=== PATIENT | female | born 1975 | race Caucasian/White ===

== ENCOUNTER 2017-07-27 14:38 | Outpatient (CLI) | payer OTHER ==
[~2017-07-27 14:38] MED LIST: TRAMADOL HCL-AP1 TAB PO
== END 2017-07-27 14:42 | disposition home or self-care (01) ==
LOC: MAMO-SONO 14:38
DX: Z12.31 Encounter for screening mammogram for malignant neoplasm of breast (principal); Z87.898 Personal history of other specified conditions; N60.11 Diffuse cystic mastopathy of right breast; N60.12 Diffuse cystic mastopathy of left breast; N92.6 Irregular menstruation, unspecified; N80.6 Endometriosis in cutaneous scar; N83.00 Follicular cyst of ovary, unspecified side; N85.7 Hematometra

== ENCOUNTER 2018-03-29 11:53 | Outpatient (CLI) | payer OTHER ==
[2018-03-30] MEDS ORDERED: CLONAZEPAM2 MG PO (10:51)
== END 2018-03-29 12:07 | disposition home or self-care (01) ==
LOC: RAD 11:53
DX: C50.912 Malignant neoplasm of unspecified site of left female breast (principal); Z01.810 Encounter for preprocedural cardiovascular examination

== ENCOUNTER → 2018-04-02 | Day surgery (SDC) | payer OTHER ==
[~2018-04-02] MED LIST changes: +CLONAZEPAM2 MG PO
== END | disposition home or self-care (01) ==
LOC: CIR.AMB 06:50
DX: D05.12 Intraductal carcinoma in situ of left breast (principal); N62 Hypertrophy of breast

== ENCOUNTER 2018-04-27 09:45 | Outpatient (CLI) | payer OTHER | END 2018-04-27 10:27 | disposition home or self-care (01) | LOC: NUCLEAR 09:45 | DX: I87.2 Venous insufficiency (chronic) (peripheral) (principal) ==

== ENCOUNTER 2018-05-10 20:34 | Emergency (ER) | payer OTHER ==
[~2018-05-10] VITALS: Ht 157.5 cm; Wt 62.1 kg
== END 2018-05-11 00:52 ==
LOC: ER 20:34
DX: R07.89 Other chest pain (principal); J04.0 Acute laryngitis

== ENCOUNTER 2018-05-11 06:46 | Emergency (ER) | payer OTHER ==
[~2018-05-11] VITALS: Ht 157.5 cm; Wt 62.1 kg
== END 2018-05-11 10:35 | disposition home or self-care (01) ==
LOC: ER 06:46
DX: J06.9 Acute upper respiratory infection, unspecified (principal); J11.1 Influenza due to unidentified influenza virus with other respiratory manifestations

== ENCOUNTER 2018-12-30 23:40 | Emergency (ER) | payer OTHER ==
[~2018-12-30] VITALS: Ht 157.5 cm; Wt 62.6 kg
[2018-12-30] MEDS ORDERED: DOLOGEN CAPLET1 EACH (23:57)
[2018-12-30] MEDS ORDERED: NEXIUM2.5 MG (23:59)
[2018-12-31] MEDS ORDERED: DOLOGEN CAPLET1 EACH PO ×2 (00:54→00:55)
== END 2018-12-31 01:18 | disposition home or self-care (01) ==
LOC: ER 23:40
DX: M94.0 Chondrocostal junction syndrome [Tietze] (principal)

== ENCOUNTER 2018-12-31 14:30 | Emergency (ER) | payer OTHER ==
[~2018-12-31] VITALS: Ht 157.5 cm; Wt 61.2 kg
[~2018-12-31 14:30] MED LIST changes: +DOLOGEN CAPLET1 EACH; +DOLOGEN CAPLET1 EACH PO; +NEXIUM2.5 MG
== END 2018-12-31 18:30 | disposition home or self-care (01) ==
LOC: ER 14:30 → CPU-OBS 14:37 → ER 18:30
DX: R07.89 Other chest pain (principal); F41.8 Other specified anxiety disorders

== ENCOUNTER 2020-01-10 16:20 | Emergency (ER) | payer OTHER ==
[~2020-01-10] VITALS: Ht 157.5 cm; Wt 56.7 kg
[2020-01-10] MEDS ORDERED: TOPROL XL25 M1 (16:32)
[2020-01-10] MEDS ORDERED: RELAFEN DS1000 MG (16:32)
== END 2020-01-10 19:58 | disposition home or self-care (01) ==
LOC: ER 16:20 → CPU-OBS 16:21 → ER 19:58
DX: M62.830 Muscle spasm of back (principal); M54.12 Radiculopathy, cervical region; M94.0 Chondrocostal junction syndrome [Tietze]

== ENCOUNTER 2020-03-30 16:17 | Emergency (ER) | payer OTHER ==
[~2020-03-30] VITALS: Ht 154.9 cm; Wt 61.2 kg
[~2020-03-30 16:17] MED LIST changes: +RELAFEN DS1000 MG; +TOPROL XL25 M1
[2020-03-30] MEDS ORDERED: ANTI-GAS166 MG PO (23:34)
[2020-03-30] MEDS ORDERED: INTESTINEX680 M1 PO (23:34)
== END 2020-03-30 23:53 ==
LOC: ER 16:17 → EMR PED 16:38 → ER 16:38
DX: K59.09 Other constipation (principal); Z03.818 Encounter for observation for suspected exposure to other biological agents ruled out; R10.84 Generalized abdominal pain

== ENCOUNTER 2020-08-05 10:12 | Emergency (ER) | payer OTHER ==
[~2020-08-05] VITALS: Ht 152.4 cm; Wt 59.9 kg
[~2020-08-05 10:12] MED LIST changes: +ANTI-GAS166 MG PO; +INTESTINEX680 M1 PO
[2020-08-05] MEDS ORDERED: NORFLEX100MG PO (14:35)
[2020-08-05] MEDS ORDERED: KETO10TA2 PO (14:35)
== END 2020-08-05 14:44 | disposition home or self-care (01) ==
LOC: ER 10:12
DX: M54.2 Cervicalgia (principal); R53.81 Other malaise; R11.0 Nausea; Z03.818 Encounter for observation for suspected exposure to other biological agents ruled out

== ENCOUNTER 2020-11-07 11:18 | Emergency (ER) | payer OTHER ==
[~2020-11-07] VITALS: Ht 157.5 cm; Wt 65.8 kg
[~2020-11-07 11:18] MED LIST changes: +KETO10TA2 PO; +NORFLEX100MG PO
== END 2020-11-07 15:43 | disposition home or self-care (01) ==
LOC: ER 11:18
DX: M54.42 Lumbago with sciatica, left side (principal)

== ENCOUNTER 2020-12-06 19:11 | Emergency (ER) | payer OTHER ==
[~2020-12-06] VITALS: Ht 157.5 cm; Wt 63.5 kg
[2020-12-06] MEDS ORDERED: CLONAZEPAM1 M1 (19:47)
[2021-02-19] MEDS ORDERED: BUSPIRONE HCL30 MG PO (12:53)
[2021-02-19] MEDS ORDERED: CLONAZEPAM2 MG PO (12:53)
[2021-02-19] MEDS ORDERED: ESCITALOPRAM OX20 MG PO (12:54)
[2021-02-19] MEDS ORDERED: TRAZODONE HCL50 MG PO (12:54)
[2021-02-19] MEDS ORDERED: FAMOTIDINE20 MG PO (12:54)
== END 2020-12-07 00:09 | disposition home or self-care (01) ==
LOC: ER 19:11
DX: G62.9 Polyneuropathy, unspecified (principal); R07.89 Other chest pain; F41.8 Other specified anxiety disorders

== ENCOUNTER 2021-01-26 11:26 | Emergency (ER) | payer OTHER ==
[~2021-01-26] VITALS: Ht 157.5 cm; Wt 63.5 kg
[~2021-01-26 11:26] MED LIST changes: +CLONAZEPAM1 M1
[2021-02-19] MEDS ORDERED: BUSPIRONE HCL30 MG PO (12:53)
[2021-02-19] MEDS ORDERED: CLONAZEPAM2 MG PO (12:53)
[2021-02-19] MEDS ORDERED: FAMOTIDINE20 MG PO (12:54)
[2021-02-19] MEDS ORDERED: TRAZODONE HCL50 MG PO (12:54)
[2021-02-19] MEDS ORDERED: ESCITALOPRAM OX20 MG PO (12:54)
== END 2021-01-26 18:51 | disposition home or self-care (01) ==
LOC: ER 11:26
DX: N93.8 Other specified abnormal uterine and vaginal bleeding (principal)

== ENCOUNTER 2021-05-15 12:09 | Emergency (ER) | payer OTHER ==
[~2021-05-15] VITALS: Ht 157.5 cm; Wt 67.1 kg
[~2021-05-15 12:09] MED LIST changes: +BUSPIRONE HCL30 MG PO; +ESCITALOPRAM OX20 MG PO; +FAMOTIDINE20 MG PO; +TRAZODONE HCL50 MG PO
== END 2021-05-15 17:22 | disposition home or self-care (01) ==
LOC: ER 12:09
DX: J32.9 Chronic sinusitis, unspecified (principal); M54.89 Other dorsalgia; Z03.818 Encounter for observation for suspected exposure to other biological agents ruled out; R09.81 Nasal congestion; R07.89 Other chest pain

== ENCOUNTER 2021-10-21 16:32 | Emergency (ER) | payer OTHER ==
[~2021-10-21] VITALS: Ht 152.4 cm; Wt 56.7 kg
== END 2021-10-22 00:02 | disposition home or self-care (01) ==
LOC: ER 16:32
DX: N39.0 Urinary tract infection, site not specified (principal)

== ENCOUNTER 2021-10-29 10:38 | Emergency (ER) | payer OTHER ==
[~2021-10-29] VITALS: Ht 175.3 cm; Wt 73.5 kg
== END 2021-10-29 17:40 | disposition home or self-care (01) ==
LOC: ER 10:38
DX: R10.9 Unspecified abdominal pain (principal); I10 Essential (primary) hypertension; Z88.0 Allergy status to penicillin

== ENCOUNTER 2021-11-04 09:01 | Emergency (ER) | payer OTHER ==
[~2021-11-04] VITALS: Ht 157.5 cm; Wt 62.1 kg
== END 2021-11-04 10:37 | disposition home or self-care (01) ==
LOC: ER 09:01
DX: M79.641 Pain in right hand (principal); Z88.0 Allergy status to penicillin; Z88.5 Allergy status to narcotic agent

== ENCOUNTER 2022-06-13 08:14 | Emergency (ER) | payer OTHER ==
[~2022-06-13] VITALS: Ht 157.5 cm; Wt 65.8 kg
[2022-06-13] MEDS ORDERED: LEVSIN/SL0.125 MG SL (16:47)
[2022-06-13] MEDS ORDERED: PEPCID20 MG PO (16:47)
== END 2022-06-13 17:17 | disposition home or self-care (01) ==
LOC: ER 08:14
DX: R10.9 Unspecified abdominal pain (principal); Z88.0 Allergy status to penicillin; Z88.6 Allergy status to analgesic agent; K76.0 Fatty (change of) liver, not elsewhere classified

== ENCOUNTER 2022-07-05 18:08 | Emergency (ER) | payer OTHER ==
[~2022-07-05] VITALS: Ht 154.9 cm; Wt 61.2 kg
[~2022-07-05 18:08] MED LIST changes: +LEVSIN/SL0.125 MG SL; +PEPCID20 MG PO
== END 2022-07-05 23:00 | disposition home or self-care (01) ==
LOC: ER 18:08
DX: S80.02XA Contusion of left knee, initial encounter (principal); S80.01XA Contusion of right knee, initial encounter; S70.01XA Contusion of right hip, initial encounter; W19.XXXA Unspecified fall, initial encounter; Y93.9 Activity, unspecified; Y92.9 Unspecified place or not applicable; Y99.9 Unspecified external cause status; Z88.0 Allergy status to penicillin; Z88.6 Allergy status to analgesic agent; S29.9XXA Unspecified injury of thorax, initial encounter